=== PATIENT | male | born 1960 | race Caucasian/White ===

== ENCOUNTER 2016-05-19 17:29 | Inpatient (IN) | payer OTHER ==
[~2016-05-19] VITALS: Ht 165.1 cm; Wt 94.3 kg
[2016-05-19 18:17] VITALS: BP 124/75
--- NOTE | 2016-05-19 20:41 | NUR ---
TO ER BED 8
--- NOTE | 2016-05-19 20:43 | NUR ---
PT IS 55/M BIB FAMILY TO ED WITH C/O BRIGHT RED BLOOD FROM RECTUM X 1 WEEK WITH ABDMINAL CRAMPING TYPE PAIN. PT STATES MED HX OF HTN, CIRRHOSIS, BLOOD TRANSFUSION. DENIES N/V/D; SKIN IS PINK/WARM/DRY; AAOX4 WITH EVEN AND STEADY GAIT; LUNGS CLEAR BL; HR EVEN AND REGULAR; PT DENIES ANY FEVER, CP, SOB, OR COUGH AT THIS TIME; PATIENT STATES PAIN OF 6/10 AT THIS TIME; VSS; PATIENT POSITIONED FOR COMFORT; HOB ELEVATED; BEDRAILS UP X2; BED DOWN. ER MD MADE AWARE OF PT STATUS.
--- NOTE | 2016-05-19 21:20 | NUR ---
Patient being evaluated by at bedside.
[2016-05-19 21:55] LABS: ANION GAP 10.9 (8-16); CALCIUM 7.5 mg/dL (8.5-10.1); CREATININE 0.8 mg/dL (0.6-1.3); POTASSIUM 3.9 mmol/L (3.5-5.1)
[2016-05-19 22:03] LABS: ALBUMIN 3.1 g/dL (3.4-5.0); TOTAL BILIRUBIN 0.7 mg/dL (0.0-1.0); TOTAL PROTEIN, SERUM 6.5 g/dL (6.4-8.2)
[2016-05-19 22:04] LABS: BASOPHILS # (AUTO) 0.1 K/uL (0.00-0.22); BASOPHILS % (AUTO) 2.6 % (0.0-2.0); EOSINOPHILS % (AUTO) 1.1 % (0.0-4.0); HEMATOCRIT 37.6 % (36-52); HEMOGLOBIN 12.6 g/dL (12.0-18.0); LYMPHOCYTES # (AUTO) 0.5 K/uL (2.0-11.5); LYMPHOCYTES % (AUTO) 23.9 % (20.5-51.1); MEAN CORPUSCULAR HEMOGLOBIN 35 pg (27-31); MEAN CORPUSCULAR HGB CONC 34 g/dL (33-37); MEAN CORPUSCULAR VOLUME 105 fL (80-94); MONOCYTES # (AUTO) 0.3 K/uL (0.8-1.0); MONOCYTES % (AUTO) 13.6 % (1.7-9.3); NEUTROPHILS # (AUTO) 1.2 K/uL (1.8-7.7); NEUTROPHILS % (AUTO) 58.8 % (42.2-75.2); RED BLOOD CELL COUNT(AUTO) 3.59 MIL/uL (4.20-6.10); RED CELL DISTRIBUTION WIDTH 14.1 % (11.6-13.7); WHITE BLOOD COUNT (AUTO) 2.1 K/uL (4.8-10.8)
[2016-05-19 22:20] LABS: PLATELET COUNT (AUTO) 23 K/uL (140-450)
--- NOTE | 2016-05-19 22:22 | NUR ---
critical lab results given to Dr. Hernandez and RN. Read back to lab technician Aury at [phone]
[2016-05-19] MEDS ORDERED: NACL 0.9% 1,000 ML IV ONE (22:25)
[2016-05-19] MEDS ORDERED: PIPERACILLIN/TAZOBACTAM 3.375 GM in DEXTROSE 5% 50 ML IV ONE (22:25)
[2016-05-19 22:33] LABS: INR 1.4 (0.8-1.2); PROTHROMBIN TIME 13.5 secs (10.8-13.4)
[2016-05-19 22:59] LABS: APPEARANCE,URINE CLEAR (CLEAR); BILIRUBIN,URINE NEGATIVE (NEGATIVE); BLOOD, URINE NEGATIVE (NEGATIVE); COLOR,URINE YELLOW (YELLOW); LEUKOCYTE ESTERASE ,URINE NEGATIVE (NEGATIVE); NITRITE, URINE NEGATIVE (NEGATIVE); PROTEIN,URINE NEGATIVE (NEGATIVE); UGLUCOSE 2+ (NEGATIVE)
--- NOTE | 2016-05-19 23:05 | NUR ---
PT TAKEN OFF UNIT TO HAVE CT DONE VIA WHEELCHAIR
[2016-05-19 23:06] LABS: BACTERIA,URINE RARE /HPF (None Seen); MUCUS,URINE 3+ /LPF (None Seen); RBC,URINE 0-3 /HPF (0-5); SQUAMOUS EPITHELIAL CELL,UR None Seen /LPF (0-3 (FEW)); WBC,URINE 0-3 /HPF (0-5)
[2016-05-19] MEDS ORDERED: PIPERACILLIN/TAZOBACTAM 3.375 GM VIAL IV ONE (23:11)
--- NOTE | 2016-05-19 23:30 | NUR ---
PT BACK ON UNIT FROM HAVING CT DONE
[2016-05-20] MEDS ORDERED: NACL 0.9% 1,000 ML IV ONE (00:15)
[2016-05-20] MEDS ORDERED: ONDANSETRON 4 MG/2 ML VIAL IVP PRN (00:45)
[2016-05-20] MEDS ORDERED: MORPHINE SULFATE 2 MG/ML SYR IVP PRN (00:45)
[2016-05-20] MEDS ORDERED: LORazepam 2 MG/ML VIAL IVP PRN (00:45)
--- NOTE | 2016-05-20 01:12 | NUR ---
Patient will be admitted to care of DR ARNOLD. Admited to TELE. Will go to room 107A. Belongings list completed. Report to JUN ISAAC.
[2016-05-20 01:20] VITALS: BP 124/72
--- NOTE | 2016-05-20 01:20 | NUR ---
RECEIVED PT FROM ER VIA SHINE PT IS AAOX4 AMBULATORY ON CARDIAC MONNITOR SR HL ON LEFT AC PATENT, NOT ACTIVE RECTAL BLEEDING AT THIS TIME , SKIN IS INTACT, PT IS ORIENTED TO THE FLOOR CALL LIGHT WITHIN REACH, RELTIVE AT BED SIDE.
[2016-05-20] MEDS ORDERED: cefTRIAXone 1,000 MG VIAL ONE (01:38)
[2016-05-20 01:51] LABS: HEMATOCRIT 35.7 % (36-52)
[2016-05-20 02:08] LABS: CREATINE KINASE MB 0.8 ng/mL (0-3.6)
--- NOTE | 2016-05-20 03:00 | NUR ---
PT AMBULATE TO THE RESTROOM VOIDING WELL NOT RECTAL BLEEDING SEEN ON TELE SR
[2016-05-20 04:00] VITALS: BP 141/68
--- NOTE | 2016-05-20 04:54 | NUR ---
SPONGE BATH GIVEN LINEN CHANGED PT REMAIN STABLE NOT RECTAL BLEEDING SEEN, ON TELE SR
--- NOTE | 2016-05-20 06:20 | NUR ---
PT RESTING ON BED NOT ACTIVE BLEEDING , ON TELEMETRY SR ,NOT DISTRESS NOTED
--- NOTE | 2016-05-20 07:30 | NUR ---
RECEIVED PT FROM ASSOCIATE PROPERTY MANAGER JUN ISAAC. PT AWAKE,ALERT, AND ORIENTED. NO S/S OF RESPIRATORY DISTRESS NOTED. ABDOMEN SOFT, NONTENDER. SKIN INTACT. IV TO LEFT AC , SITE INTACT AND PATENT. PT CAN MOVE ALL HIS EXTREMITIES. NO ACTIVE RECTAL BLEEDING AT THIS TIME. VSS .CALL LIGHT IN REACH. POC DISCUSSED WITH PT, WILL CONTINUE TO MONITOR.
[2016-05-20 08:00] VITALS: BP 130/80
--- NOTE | 2016-05-20 08:00 | NUR ---
PATIENT HAS BEEN SCREENED AND CATEGORIZED HIGH NUTRITION RISK. PATIENT WILL BE SEEN WITHIN 1-2 DAYS OF ADMISSION. 05/20/16-05/21/[address]
[2016-05-20] MEDS ORDERED: DEXTROSE 50% 50 ML SYR IVP PRN (08:35)
[2016-05-20] MEDS ORDERED: PANTOPRAZOLE 40 MG INJ VIAL IVP ONE (09:00)
[2016-05-20] MEDS: PANTOPRAZOLE 40 MG INJ VIAL IVP SCH (09:19)
[2016-05-20 09:36] LABS: HEMATOCRIT 38.7 % (36-52); HEMOGLOBIN 13.3 g/dL (12.0-18.0); MEAN CORPUSCULAR HEMOGLOBIN 36 pg (27-31); MEAN CORPUSCULAR HGB CONC 34 g/dL (33-37); MEAN CORPUSCULAR VOLUME 105 fL (80-94); PLATELET COUNT (AUTO) 28 K/uL (140-450); WHITE BLOOD COUNT (AUTO) 2.1 K/uL (4.8-10.8)
[2016-05-20 10:02] LABS: BAND % (MANUAL) 2 % (0-8); BASOPHILS % (MANUAL) 1 % (0-2); EOSINOPHILS % (MANUAL) 4 % (0-4); LYMPHOCYTES % (MANUAL) 18 % (20-46); MONOCYTES % (MANUAL) 8 % (5-12); NEUTROPHILS % (MANUAL) 67 (43-65); PLATELET ESTIMATE DECREASED
[2016-05-20 10:07] LABS: HYPOCHROMASIA 1+
--- NOTE | 2016-05-20 10:30 | NUR ---
PT RESTING IN BED. NO PAIN OR DISCOMFORTED COMPLAINED AT THIS TIME.
[2016-05-20] MEDS: BLOOD GLUCOSE MONITORING 1 DEV DEV FS SCH ×3 (10:45→21:41)
--- NOTE | 2016-05-20 11:48 | NUR ---
CM NOTE INITIAL REVIEW SENT TO [facility] FAX# [phone] PH# ALBERTO [phone] JULY [phone] AND TO [facility] FAX# [phone] PH# [phone]
[2016-05-20 12:00] VITALS: BP 134/81
--- NOTE | 2016-05-20 13:22 | NUR ---
05/20/16 RD INITIAL ASSESSMENT COMPLETED PLEASE REFER TO NUTRITION ASSESSMENT UNDER CARE ACTIVITY FOR ESTIMATED NUTRITIONAL NEEDS. RD RECOMMENDATIONS: 1. CONTINUE ON CCHO 60 DIET TOLERATED. 2. INCREASE PROTEIN NEEDS D/T SEPSIS. 3. RD WILL F/U 3-5 DAYS; MODERATE RISK. ENRIQUE ARELLANO RD
--- NOTE | 2016-05-20 14:17 | NUR ---
PT HAD BLOODY STOOL, PAGED , WILL FOLLOW UP.
--- NOTE | 2016-05-20 14:22 | NUR ---
CALLED IN, UPDATED PT'S CONDITION. PER HE WILL COME IN TO SEE PT.
--- NOTE | 2016-05-20 15:54 | NUR ---
ENDORSED PT TO EDWARD BARAHONA AND ETHEL BARAHONA . PT VSS AT THIS TIME. NO S/S OF RESPIRATORY DISTRESS NOTED.
[2016-05-20 16:00] VITALS: BP 140/74
--- NOTE | 2016-05-20 16:00 | NUR ---
RECEIVED REPORT FROM BILL BARAHONA FOR CONTINUITY OF CARE. PT RESTING IN BED. VSS. CONDITION AND PLAN OF CARE DISCUSSED AND RECEIVED. PT SEEN BY DR MENDOZA, NEW ORDERS CARRIED OUT. INFORMED CONSENT OBTAINED FOR EGD/COLONOSCOPY. EDUCATION HAND OUT GIVEN.
[2016-05-20] MEDS: LACTULOSE 20 GM/30 ML UDC PO SCH ×2 (17:26→21:42)
[2016-05-20] MEDS: SENNA 8.6 MG TAB PO SCH (17:27)
[2016-05-20] MEDS: INSULIN LISPRO SLIDING SCALE 100 UNITS/ML VIAL SUBQ PRN (17:31)
--- NOTE | 2016-05-20 18:16 | NUR ---
ALL DUE MEDS GIVEN ORDERED WITH EDUCATION. PT TOLERATED WELL. CONDITION REMAINS STABLE.
[2016-05-20] MEDS ORDERED: MAGNESIUM CITRATE 300 ML BTL PO SCH (19:00)
--- NOTE | 2016-05-20 19:22 | NUR ---
ENDORSED PLAN OF CARE TO NIGHT NURSE. CONDITION STABLE.
--- NOTE | 2016-05-20 19:23 | NUR ---
RECEIVED PT FROM NOEMI RN PT ROMANSH SPEAKER AAOX4 AMBULATORY HL ON LEFT AC PATENT ON TELEMETRY SR RELATIVES AT BED SIDE INITIAL ASSESSMENT DONE
[2016-05-20 20:00] VITALS: BP 117/66
--- NOTE | 2016-05-20 21:00 | NUR ---
BLOOD SUGAR TEST 86 PT HAS A LIQUID STOOL REDDISH.
[2016-05-21] VITALS: BP 112/71
--- NOTE | 2016-05-21 | NUR ---
PT SLEEPING WELL NOT DISTRESS NOTED STILL LIQUID STOOL REDDISH, , PT IS NPO FOR EGD AND COLONOSCOPY IN AM
[2016-05-21 00:40] LABS: HEMATOCRIT 37.7 % (36-52); HEMOGLOBIN 12.4 g/dL (12.0-18.0)
[2016-05-21 01:54] LABS: CREATINE KINASE MB 0.6 ng/mL (0-3.6)
[2016-05-21 04:00] VITALS: BP 105/65
--- NOTE | 2016-05-21 04:46 | NUR ---
SPONGE BATH GIVEN , LINEN CHANGED NOT DISTRESS NOTES PT STILL LIQUID STOOL REDDISH COLOR
[2016-05-21] MEDS: BLOOD GLUCOSE MONITORING 1 DEV DEV FS SCH ×4 (05:59→20:34)
[2016-05-21 06:00] LABS: HEMATOCRIT 37.7 % (36-52); HEMOGLOBIN 12.9 g/dL (12.0-18.0); MEAN CORPUSCULAR HEMOGLOBIN 36 pg (27-31); MEAN CORPUSCULAR HGB CONC 34 g/dL (33-37); MEAN CORPUSCULAR VOLUME 105 fL (80-94); PLATELET COUNT (AUTO) 33 K/uL (140-450); RED CELL DISTRIBUTION WIDTH 13.7 % (11.6-13.7); WHITE BLOOD COUNT (AUTO) 2.3 K/uL (4.8-10.8)
--- NOTE | 2016-05-21 06:03 | NUR ---
BLOOD SUGAR TEST 102, PT STILL LIQUID STOOL REDDISH COLOR DENIES ANY PAIN , CONSENT ,SURGICAL CHECK LIST AND TICKET TO RIDE READY FOR EGD AND COLONOSCOPY
[2016-05-21 06:33] LABS: ALBUMIN 3.2 g/dL (3.4-5.0); ANION GAP 7.5 (8-16); CALCIUM 7.7 mg/dL (8.5-10.1); CARBON DIOXIDE 29.1 mmol/L (21-32); CREATININE 0.6 mg/dL (0.6-1.3); MAGNESIUM 1.8 mg/dL (1.8-2.4); POTASSIUM 3.6 mmol/L (3.5-5.1); TOTAL BILIRUBIN 1.5 mg/dL (0.0-1.0); TOTAL PROTEIN, SERUM 6.6 g/dL (6.4-8.2)
--- NOTE | 2016-05-21 07:00 | NUR ---
PT ALERT AND ORIENTED X4, PASHTO SPEAKING. NO SIGNS OF ACUTE DISTRESS. SKIN IS WARM AND DRY. NO EPISODES OF ANY NAUSEA OR VOMITING. NO DISCOMFORT NOTED. DENIES OF ANY PAIN OR DISCOMFORT. ALL NEEDS ATTENDED, SAFETY PRECAUTIONS MAINTAINED. CALL LIGHT WITHIN REACH.
[2016-05-21 07:05] LABS: BAND % (MANUAL) 1 % (0-8); BASOPHILS % (MANUAL) 0 % (0-2); EOSINOPHILS % (MANUAL) 3 % (0-4); LYMPHOCYTES % (MANUAL) 21 % (20-46); MONOCYTES % (MANUAL) 6 % (5-12); NEUTROPHILS % (MANUAL) 69 (43-65); PLATELET ESTIMATE DECREASED
[2016-05-21 08:00] VITALS: BP 117/73
--- NOTE | 2016-05-21 08:13 | NUR ---
PT WENT OFF UNIT TO OR FOR EGD AND COLONOSCOPY, AWAKE ALERT AND RESPONSIVE NO SIGNS OF ACUTE DISTRESS. PRE OP CHECKLIST DONE PER PERMACULTURE CONTRACTOR NURSE. VERIFIED AND CONTINUE TO MONITOR.
[2016-05-21] MEDS: fentaNYL 0.05 MG/ML VIAL ONE ×2 (08:17→10:47)
[2016-05-21] MEDS: MIDAZOLAM 2 MG/2 ML VIAL ONE ×2 (08:17→10:47)
[2016-05-21] MEDS: LACTULOSE 20 GM/30 ML UDC PO SCH (09:00)
[2016-05-21] MEDS: PANTOPRAZOLE 40 MG INJ VIAL IVP SCH (09:00)
[2016-05-21] MEDS ORDERED: LACTULOSE 20 GM/30 ML UDC PO SCH (09:00)
[2016-05-21] MEDS: SENNA 8.6 MG TAB PO SCH (09:00)
[2016-05-21] MEDS: NADOLOL 20 MG TAB PO SCH (09:00)
[2016-05-21 09:07] LABS: INR 1.4 (0.8-1.2); PROTHROMBIN TIME 13.3 secs (10.8-13.4)
[2016-05-21 11:00] VITALS: BP 106/60
--- NOTE | 2016-05-21 11:00 | NUR ---
PT CAME BACK FROM OR. RECEIVED REPORT FROM OR NURSE MCCONNELL. S/P EGD WITH COLONOSCOPY. POST OP DX ESOPHAGEAL VARICES, DIVERTICULOSIS AND HEMORRHOIDS WITH 7 BANDS TOTAL. PT IS ASLEEP, AND RESPONSIVE. NO SIGNS OF ACUTE DISTRESS. NO C/O PAIN AT THIS TIME. NO EPISODES OF ANY NAUSEA OR VOMITING AT THIS TIME. CONTINUE TO MONITOR.
[2016-05-21] MEDS ORDERED: FUROSEMIDE 20 MG/2 ML VIAL IVP SCH (11:15)
--- NOTE | 2016-05-21 11:17 | NUR ---
NEW ORDERS RECEIVED FROM Rand GALLARDO NOTED AND CARRIED OUT.
[2016-05-21 16:00] VITALS: BP 129/71
[2016-05-21] MEDS: INSULIN LISPRO SLIDING SCALE 100 UNITS/ML VIAL SUBQ PRN ×2 (16:04→20:39)
--- NOTE | 2016-05-21 19:21 | NUR ---
PT ALERT AND RESPONSIVE, NO SIGNS OF ACUTE DISTRESS. ENDORSED TO ONCOMING ANIMAL NUTRITION CONSULTANT NURSE FOR CONTINUITY OF CARE.
--- NOTE | 2016-05-21 19:30 | NUR ---
RECEIVED REPORT FROM JUN SKINNER, AT BEDSIDE. INITIAL ASSESSMENT AND BODY CHECK DONE. PATIENT AAO X 4, ABLE TO FOLLOW COMMAND AND MAKE NEEDS KNOWN AND AMBULATORY BY SELF WITH STEADY GAIT. PATIENT CURRENTLY SITTING UP ON THE BED AND TALKING TO HIS . NO S/S OF DISTRESS OR SOB NOTED. DENIED OF PAIN/DISCOMFORT AT THIS TIME. SKIN WARM/DRY TO TOUCH WITH NORMAL COLOR AND INTACT. NO ACTIVE RECTAL BLEEDING NOTED. DISCUSSED PLAN OF CARE, PAIN MANAGEMENT AND MEDICATION REGIMEN WITH PATIENT AND PATIENT VERBALIZED UNDERSTANDING. PLACED PATIENT ON SAFETY PRECAUTIONS AND WILL CONTINUE TO MONITOR. CALL LIGHT LEFT WITHIN REACH.
[2016-05-21] MEDS: POTASSIUM CHLORIDE 20% 40 MEQ/15 ML UDC PO SCH (20:35)
--- NOTE | 2016-05-21 22:05 | NUR ---
ADMINISTERED DUE MEDICATION MD'S ORDERED WITH EDUCATION GIVEN. PATIENT COMPLYING WITH MEDICATION AND TOLERATED WELL. RESTED COMFORTABLE IN BED WITH ALL NEEDS ATTENDED. WILL CONTINUE TO MONITOR.
[2016-05-22] VITALS: BP 122/64
--- NOTE | 2016-05-22 00:36 | NUR ---
PATIENT ASLEEP COMFORTABLY IN BED, EASILY AROUSED AND REMAINED IN STABLE CONDITION. NO ANY COMPLAINT MADE. WILL CONTINUE TO MONITOR.
--- NOTE | 2016-05-22 03:40 | NUR ---
PATIENT IS CLINICALLY STABLE WITHOUT APPARENT DISTRESS NOTED. WILL CONTINUE TO MONITOR.
[2016-05-22] MEDS: BLOOD GLUCOSE MONITORING 1 DEV DEV FS SCH ×2 (05:30→11:18)
[2016-05-22 06:03] LABS: BASOPHILS # (AUTO) 0.1 K/uL (0.00-0.22); BASOPHILS % (AUTO) 2.4 % (0.0-2.0); EOSINOPHILS % (AUTO) 1.8 % (0.0-4.0); HEMATOCRIT 35.3 % (36-52); HEMOGLOBIN 11.8 g/dL (12.0-18.0); LYMPHOCYTES # (AUTO) 0.4 K/uL (2.0-11.5); LYMPHOCYTES % (AUTO) 15.5 % (20.5-51.1); MEAN CORPUSCULAR HEMOGLOBIN 35 pg (27-31); MEAN CORPUSCULAR HGB CONC 33 g/dL (33-37); MEAN CORPUSCULAR VOLUME 106 fL (80-94); MONOCYTES # (AUTO) 0.2 K/uL (0.8-1.0); NEUTROPHILS # (AUTO) 1.8 K/uL (1.8-7.7); NEUTROPHILS % (AUTO) 70.3 % (42.2-75.2); PLATELET COUNT (AUTO) 20 K/uL (140-450); RED BLOOD CELL COUNT(AUTO) 3.33 MIL/uL (4.20-6.10); RED CELL DISTRIBUTION WIDTH 13.6 % (11.6-13.7); WHITE BLOOD COUNT (AUTO) 2.5 K/uL (4.8-10.8)
[2016-05-22 06:12] LABS: ANION GAP 7.9 (8-16); CALCIUM 7.4 mg/dL (8.5-10.1); CARBON DIOXIDE 27.6 mmol/L (21-32); CREATININE 0.6 mg/dL (0.6-1.3); POTASSIUM 3.5 mmol/L (3.5-5.1)
--- NOTE | 2016-05-22 07:20 | NUR ---
ENDORSED PLAN OF CARE TO JUN SKINNER, AT BEDSIDE. PATIENT RESTED WELL THROUGHOUT THE SHIFT AND REMAINED IN STABLE CONDITION WITHOUT S/S OF DISTRESS NOTED.
--- NOTE | 2016-05-22 07:21 | NUR ---
PT ALERT AND ORIENTED X4, SYRIAC SPEAKING. NO SIGNS OF ACUTE DISTRESS. SKIN IS WARM AND DRY. NO C/O ANY BOWEL OR BLADDER DISCOMFORT. DENIES OF ANY PAIN OR DISCOMFORT. ALL NEEDS ATTENDED, SAFETY PRECAUTIONS MAINTAINED. CALL LIGHT WITHIN REACH.
[2016-05-22 08:00] VITALS: BP 112/67
[2016-05-22] MEDS: NADOLOL 20 MG TAB PO SCH (08:14)
[2016-05-22] MEDS: POTASSIUM CHLORIDE 20% 40 MEQ/15 ML UDC PO SCH (08:15)
[2016-05-22] MEDS ORDERED: PANTOPRAZOLE 40 MG TABEC PO SCH (09:00)
[2016-05-22] MEDS ORDERED: MINERAL OIL 30 ML UDC PO ONE (09:00)
[2016-05-22] MEDS ORDERED: LACTULOSE 20 GM/30 ML UDC PO SCH (09:00)
--- NOTE | 2016-05-22 10:53 | NUR ---
PT REPORTED AND ALSO NOTED A 2 SMALL RUBBER BANDS AFTER HAVING A BM, CALLED Rand FARFAN AND LEFT A MESSAGE. AWAITING FOR RESPONSE.
[2016-05-22] MEDS: INSULIN LISPRO SLIDING SCALE 100 UNITS/ML VIAL SUBQ PRN (11:18)
[2016-05-22] MEDS ORDERED: PANT40EC PO (11:30)
--- NOTE | 2016-05-22 11:42 | NUR ---
RECEIVED NEW ORDER FROM DR. ARNOLD. JUNE D/C PT. TODAY. MADE AWARE OF NOTED RUBBER BANDS FROM BM. VERBALIZED IT'S OK. PT AND FAMILY MADE AWARE.
--- NOTE | 2016-05-22 13:00 | NUR ---
PT ALERT AND ORIENTED, NO SIGNS OF ACUTE DISTRESS. MAY D/C HOME ORDERED BY DR. ARNOLD. EDUCATED TO FOLLOW UP WITH PCP IN 1 WEEK. PT AND FAMILY VERBALIZED UNDERSTANDING. REVIEWED DISCHARGE PRESCRIPTIONS INDICATIONS AND SIDE EFFECTS. VERBALIZED UNDERSTANDING. IV LINE AND WRIST BANDS REMOVED. PERSONAL BELONGINGS WITH PT UPON D/C. PICKED UP BY FAMILY AND WHEELED OUT TO FRONT LOBBY. WILL GO HOME WITH PRIVATE AUTO.
== END 2016-05-22 13:00 | disposition home or self-care (01) | DRG 710 ==
LOC: MED 17:29 → MTU 05-20 00:38 → OBSVTOIN 05-20 08:23
PROVIDERS: ADMIT Hospitalist; ATTEND Hospitalist
PROC: 06LY4CC Occlusion of Hemorrhoidal Plexus with Extraluminal Device, Percutaneous Endoscopic Approach (ICD-10-PCS; principal; 2016-05-21 09:00)
PROC: 06L34CZ Occlusion of Esophageal Vein with Extraluminal Device, Percutaneous Endoscopic Approach (ICD-10-PCS; 2016-05-21 09:00)
DX: A41.9 Sepsis, unspecified organism (principal); D61.818 Other pancytopenia; I85.00 Esophageal varices without bleeding; K70.30 Alcoholic cirrhosis of liver without ascites; K76.6 Portal hypertension; E11.9 Type 2 diabetes mellitus without complications; I10 Essential (primary) hypertension; D50.0 Iron deficiency anemia secondary to blood loss (chronic); K64.8 Other hemorrhoids; D73.1 Hypersplenism; E66.9 Obesity, unspecified; K57.30 Diverticulosis of large intestine without perforation or abscess without bleeding; Z98.890 Other specified postprocedural states; Z68.34 Body mass index [BMI] 34.0-34.9, adult
CPT/HCPCS: 96365; 99285; G0378; 36415; 80048; 80053; 81001; 82550; 82553; 82948; 83540; 83605; 83690; 83735; 84484; 85018; 85025; 85610; 87040; 87081; 93005; C9113; J0696; J1815; J2250; J2543; J3010; J7030; J7060; Q9967

== ENCOUNTER 2018-10-10 15:16 | Inpatient (IN) | payer OTHER ==
[~2018-10-10] VITALS: Ht 167.6 cm; Wt 93.0 kg
[2018-10-10 15:16] VITALS: BP 90/48
[~2018-10-10 15:16] MED LIST: PANT40EC PO
--- NOTE | 2018-10-10 15:16 | NUR ---
PATIENT WAS BIB AMBULANCE
--- NOTE | 2018-10-10 15:16 | NUR ---
PATIENT WAS TRANSFERED TO BED 10
[2018-10-10] MEDS ORDERED: NACL 0.9% 1,000 ML IV SCH (15:26)
[2018-10-10] MEDS ORDERED: OCTREOTIDE ACETATE 1.25 MG in NACL 0.9% 250 ML IV SCH (15:30)
[2018-10-10] MEDS ORDERED: cefTRIAXone 1,000 MG VIAL ONE (15:45)
--- NOTE | 2018-10-10 15:45 | NUR ---
PT WAS BIBA FROM [facility]; PT WAS HAVING ESOPHAGEAL BANDS PLACED AND PATIENT HAD 5 PLACED, AND PT BEGAN BLEEDING DURING PROCEDURE. ESTIMATED BLOOD LOSS 500 CC PER EMS. PT IS AAOX4, DENIES ANY PAIN AT THIS TIME. IVF INFUSING WELL. PT ABLE TO TALK, MAKE HIS NEEDS KNOWN. PUPILS REACTIVE TO LIGHT BOTH 3 MM. CLEAR SPEECH. BREATHING EVEN AND NON-LABORED. CONNECTED TO MONITOR AT THIS TIME. LABS DRAWN. ER MD AT THE BEDSIDE. WILL CONTINUE TO MONTIOR PT. HX LIVER CIRRHOSIS, ETOH ABUSE, ESOPHAGEAL VARACIES
[2018-10-10 15:53] LABS: BASOPHILS % (AUTO) 0.4 % (0.0-2.0); EOSINOPHILS # (AUTO) 0.1 K/uL (0-0.4); EOSINOPHILS % (AUTO) 1.4 % (0.0-4.0); HEMOGLOBIN 9.2 g/dL (12.0-18.0); LYMPHOCYTES # (AUTO) 0.6 K/uL (2.0-11.5); LYMPHOCYTES % (AUTO) 9.2 % (20.5-51.1); MEAN CORPUSCULAR HEMOGLOBIN 35 pg (27-31); MEAN CORPUSCULAR HGB CONC 34 g/dL (33-37); MEAN CORPUSCULAR VOLUME 103.6 fL (80-94); MONOCYTES # (AUTO) 0.4 K/uL (0.8-1.0); NEUTROPHILS # (AUTO) 5.1 K/uL (1.8-7.7); PLATELET COUNT (AUTO) 51 K/uL (140-450); RED BLOOD CELL COUNT(AUTO) 2.61 MIL/uL (4.20-6.10); RED CELL DISTRIBUTION WIDTH 14.1 % (11.6-13.7); WHITE BLOOD COUNT (AUTO) 6.2 K/uL (4.8-10.8)
[2018-10-10 16:11] LABS: ANION GAP 9.5 (8-16); CARBON DIOXIDE 26.1 mmol/L (21-32); POTASSIUM 3.6 mmol/L (3.5-5.1)
[2018-10-10 16:12] LABS: CREATININE 0.7 mg/dL (0.7-1.3); PROTHROMBIN TIME 16.8 secs (10.8-13.4)
[2018-10-10 16:13] LABS: ALBUMIN 1.9 g/dL (3.4-5.0); TOTAL BILIRUBIN 1.4 mg/dL (0.0-1.0)
--- NOTE | 2018-10-10 16:22 | NUR ---
FAMILY AT THE BEDSIDE. PT RESTING COMFORTABLY AT THE BEDSIDE. VS STABVLE. BP 96/56. PT STATES HAVING PAIN AT THROAT AND STOMACH /10. MORE AWAKE AND TALKING TO PT. O2 SAT 96% ON VIA NC 2L. WILL CONTINUE TO MONITOR PT.
--- NOTE | 2018-10-10 16:25 | NUR ---
CONFIRMED INSURANCE WITH ER ADMITTING AND [facility]ED [facility]
[2018-10-10] MEDS ORDERED: ONDANSETRON 4 MG/2 ML VIAL IVP ONE (16:40)
[2018-10-10] MEDS ORDERED: MORPHINE SULFATE 2 MG/ML SYR IVP ONE (16:40)
[2018-10-10] MEDS ORDERED: PANTOPRAZOLE 40 MG INJ VIAL IVP ONE (16:40)
--- NOTE | 2018-10-10 16:41 | NUR ---
UNABLE TO OBTAIN MEDICATION RECONCILIATION AT THIS TIME. AND FAMILY AT BEDSIDE WILL BRING MEDICATIONS FROM HOME.
--- NOTE | 2018-10-10 16:52 | NUR ---
CHECKED ON PT. MEDICATED WITH PAIN MED. LYING COMFORTABLTY IN HIS BED. BP 98/60 AT THIS TIME. PT TO BE ADMITTED TO ICU. WAITING FOR THE BED.
--- NOTE | 2018-10-10 17:06 | NUR ---
ADMITITNG DR. GIFFORD TALKING TO FAMILY MEMBER AND PT AT THE BEDSIDE.
[2018-10-10] MEDS ORDERED: POTASSIUM CHLORIDE 40 MEQ, LIDOCAINE 1% 25 MG in NACL 0.9% 250 ML IV PRN (17:15)
[2018-10-10] MEDS ORDERED: MAGNESIUM OXIDE 400 MG TAB PO PRN (17:15)
[2018-10-10] MEDS ORDERED: diphenhydrAMINE 50 MG/ML VIAL IVP PRN (17:15)
[2018-10-10] MEDS ORDERED: ALBUTEROL 0.083% 2.5 MG/3 ML NEBU INH PRN (17:15)
[2018-10-10] MEDS ORDERED: ALUMINUM HYD/MAG/SIMETHICONE 30 ML UDC PO PRN (17:15)
[2018-10-10] MEDS ORDERED: HYDROcodone/APAP 5/325 MG 1 TAB TAB PO PRN ×2 (17:15)
[2018-10-10] MEDS ORDERED: IPRATROPIUM 0.02% 0.5 MG/2.5 ML NEBU INH PRN (17:15)
[2018-10-10] MEDS ORDERED: ZOLPIDEM 5 MG TAB PO PRN (17:15)
[2018-10-10] MEDS ORDERED: LORazepam 2 MG/ML VIAL IVP PRN (17:15)
[2018-10-10] MEDS ORDERED: POTASSIUM CHLORIDE 10 MEQ TABER PO PRN (17:15)
[2018-10-10] MEDS ORDERED: ACETAMINOPHEN 325 MG TAB PO PRN (17:15)
[2018-10-10] MEDS ORDERED: MORPHINE SULFATE 2 MG/ML SYR IVP PRN (17:15)
[2018-10-10] MEDS ORDERED: ONDANSETRON 4 MG/2 ML VIAL IVP PRN (17:15)
[2018-10-10] MEDS ORDERED: BISACODYL 10 MG SUPP RC PRN (17:15)
[2018-10-10] MEDS ORDERED: MAG SULF 2000 MG/WATER PREMIX 50 ML IV PRN (17:15)
[2018-10-10] MEDS ORDERED: ACETAMINOPHEN 650 MG SUPP RC PRN (17:15)
[2018-10-10] MEDS ORDERED: SODIUM PHOSPHATE 118 ML ENEM RC PRN (17:15)
[2018-10-10] MEDS ORDERED: DEXTROSE 50% 50 ML SYR IVP PRN (17:15)
[2018-10-10] MEDS ORDERED: DOCUSATE SODIUM 250 MG GELCAP PO PRN (17:15)
[2018-10-10] MEDS ORDERED: guaiFENesin DM 200/20 MG-10 ML 10 ML UDC PO PRN (17:15)
[2018-10-10] MEDS ORDERED: ALBUMIN HUMAN 25% 100 ML IV ONE (17:45)
[2018-10-10] MEDS: NACL 0.9% 1,000 ML IV SCH (17:45)
--- NOTE | 2018-10-10 17:45 | NUR ---
ADMINISTERED ALBUMIN ADN 0.9 NS IVF ORDERED FOR PT HAVING LOW BLOOD PRESSURE. RECHECKED BP 95/49 AT THIS TIME. WILL CONTINUE TO MONITOR PT.
[2018-10-10] MEDS ORDERED: ALBUMIN HUMAN 25% 100 ML IV SCH (18:00)
--- NOTE | 2018-10-10 18:09 | NUR ---
CHECKED ON PT, VSS STABLE. PT DENIES ANY PAIN AT THIS TIME. BP 92/49. FAMILY AT THE BEDSIDE. WAITING FOR THE BED IN ICU, WILL CONTINUE TO MONITOR PT.
[2018-10-10] MEDS ORDERED: PROP20TA28 PO (18:30)
[2018-10-10] MEDS ORDERED: FERR-18 PO (18:30)
--- NOTE | 2018-10-10 18:38 | NUR ---
PATIENT IS TRANSFERED TO ICU BY NURSE AND EMT
--- NOTE | 2018-10-10 18:50 | NUR ---
Patient will be admitted to care of DR. GIFFORD. Admited to ICU. Will go to BED 3. Belongings list completed. Report to JUN MOON.
--- NOTE | 2018-10-10 18:50 | NUR ---
PT STABLE AT THE TIME OF DISCHARGE. PT MOVED SELF TO BED BY SLIDING . PT AAOX4. REPORT GIVEN TO JUN MOON. PT ALIZE.
--- NOTE | 2018-10-10 19:05 | NUR ---
REPORT GIVEN AT BEDSIDE BY DAY NURSE. PT AAOX4. ABLE TO SPEAK AND UNDERSTAND LITHUANIAN. ABLE TO MAKE NEEDS KNOWN. PERRLA BILATERALLY. AFEBRILE 97.6. DENIES PAIN AT THIS TIME. ON ROOM AIR WITH SAT AT 99%. LUNG SOUNDS CLEAR BILATERALLY. RESPIRATIONS EVEN AND UNLABORED. CHEST RISE SYMMETRICAL. SR ON MONITOR. PULSES PALPABLE. BP SLIGHTLY LOW AT THIS TIME. SBP AROUND 90S AT THIS TIME. BOWEL SOUNDS PRESENT IN ALL 4 QUADS. STATES LAST BM YESTERDAY. DENIES NAUSEA AND VOMITING AT THIS TIME. PT HAS RIGHT HAND 22 GAUGE, LEFT AC 18 GAUGE, AND RIGHT AC 20 GAUGE THAT ARE INTACT, PATENT, AND RUNNING NS 70ML/HR. OCREOTIDE @ 10ML/HR. PT NPO EXCEPT MEDS. SKIN INTACT. NON SKID SOCKS ON. MRSA SWAB DONE. BED IN LOWEST POSITION. SIDE RAILS UP. CALL LIGHT WITHIN REACH. WILL CONTINUE TO MONITOR.
[2018-10-10 19:16] LABS: APPEARANCE,URINE CLOUDY (CLEAR); BILIRUBIN,URINE 1+ (NEGATIVE); BLOOD, URINE NEGATIVE (NEGATIVE); COLOR,URINE ORANGE (YELLOW); LEUKOCYTE ESTERASE ,URINE NEGATIVE (NEGATIVE); NITRITE, URINE POSITIVE (NEGATIVE); UGLUCOSE TRACE (NEGATIVE)
[2018-10-10 19:29] LABS: RBC,URINE 0-5 /HPF (0-5); WBC,URINE 0-5 /HPF (0-5)
--- NOTE | 2018-10-10 19:47 | NUR ---
RECEIVED A CALL FROM DR. RITCHIE WANTING TO SEE IF THERE IS A GI CONSULT FOR THE PT. DR. RITCHIE WANTS TO BE THE CONSULT. WILL CALL DR. WEBB AND WILL NOTIFY DR. RITCHIE .
[2018-10-10 19:57] LABS: BASOPHILS % (AUTO) 0.2 % (0.0-2.0); EOSINOPHILS % (AUTO) 0.2 % (0.0-4.0); HEMATOCRIT 24.2 % (36-52); HEMOGLOBIN 8.2 g/dL (12.0-18.0); LYMPHOCYTES # (AUTO) 0.4 K/uL (2.0-11.5); MEAN CORPUSCULAR HEMOGLOBIN 35 pg (27-31); MEAN CORPUSCULAR HGB CONC 34 g/dL (33-37); MEAN CORPUSCULAR VOLUME 104.2 fL (80-94); MONOCYTES # (AUTO) 0.2 K/uL (0.8-1.0); MONOCYTES % (AUTO) 3.4 % (1.7-9.3); NEUTROPHILS % (AUTO) 89.2 % (42.2-75.2); PLATELET COUNT (AUTO) 38 K/uL (140-450); RED BLOOD CELL COUNT(AUTO) 2.32 MIL/uL (4.20-6.10); RED CELL DISTRIBUTION WIDTH 14.2 % (11.6-13.7); WHITE BLOOD COUNT (AUTO) 5.6 K/uL (4.8-10.8)
[2018-10-10 20:00] VITALS: BP 107/64
[2018-10-10] MEDS: OCTREOTIDE ACETATE 1.25 MG in NACL 0.9% 250 ML IV SCH (20:00)
--- NOTE | 2018-10-10 20:00 | NUR ---
HELD 2 UNITS HUMALOG FOR BG 160 SINCE PATIENT IS NPO AND ONLY ON NS.
--- NOTE | 2018-10-10 20:00 | NUR ---
PT HAD VISITORS IN ROOM. VSS. PT CALM. NO S/S OF DISTRESS. WILL CONTINUE TO MONITOR.
[2018-10-10] MEDS: LACTULOSE 20 GM/30 ML UDC PO SCH (20:01)
[2018-10-10] MEDS: MIDODRINE 5 MG TAB PO SCH (20:01)
[2018-10-10] MEDS: BLOOD GLUCOSE MONITORING 1 DEV DEV FS SCH (20:02)
--- NOTE | 2018-10-10 20:10 | NUR ---
VISITOR DROPPED OFF PT PHONE. PT STATES WANTS IT AT BEDSIDE.
--- NOTE | 2018-10-10 20:44 | NUR ---
CALLED DR LOONEY CALL BACK FROM DR PELAEZ. DR PELAEZ STATED DR LOONEY HAS TO DECIDE IF DR RITCHIE CAN BE PATIENTS GI CONSULT. DR PELAEZ STATED OKAY FOR PATIENT TO CONTINUE FULL CODE STATUS. DR PELAEZ STATED HE DID NOT WANT TO CONTINUE HOME MEDS FERROUS SULFATE 325 MG PO TID AND PROPRANOLOL [address]. [address] PELAEZ HEMOGLOBIN WENT DOWN 9.2 TO 8.2 AND HE STATED OKAY FOR NEXT BLOOD DRAW TO BE AT 0600 10/11/18. DR PELAEZ STATED OKAY FOR MRSA SCREEN ORDER.
--- NOTE | 2018-10-10 20:50 | NUR ---
RECEIVED PATIENT ON ROOM AIR, PULSE OX SAT 100%. EXPIRATORY WHEEZE NOTED. PRN BREATHING TREATMENT ADMINISTERED. TOLERATED TX WELL WITHOUT ADVERSE SIDE EFFECTS. PATIENT STATES TO BE "FEELING BETTER" POST TX. NO ACUTE RESPIRATORY DISTRESS NOTED AT THIS TIME. WILL CONTINUE TO MONITOR.
--- NOTE | 2018-10-10 21:10 | NUR ---
PATIENT VOMITED 200 ML BLOODY VOMITUS GAVE PRN ZOFRAN
--- NOTE | 2018-10-10 21:48 | NUR ---
CALLED [facility] TO SEE IF THERE IS A WAY TO BE TRANSFERRED TO DR LOONEY REGARDING PATIENTS GI CONSULT WITH DR RITCHIE. ENVIRONMENTAL ADVISER STATED THERE IS NO WAY TO CONTACT DR LOONEY AT THIS TIME THERE IS ONLY THE TAX COLLECTOR DR WHICH IS DR PELAEZ.
--- NOTE | 2018-10-10 21:53 | NUR ---
CALLED DR RITCHIE LEFT MESSAGE TO CALL BACK REGARDING PATIENTS GI CONSULT
[2018-10-10 22:00] VITALS: BP 91/44
--- NOTE | 2018-10-10 22:03 | NUR ---
RT AT PT BEDSIDE. GIVING BREATHING TX. VSS. WILL CONTINUE TO MONITOR
--- NOTE | 2018-10-10 22:30 | NUR ---
EMPTIED 100 ML URINE, DARK JAIME IN COLOR
--- NOTE | 2018-10-10 23:17 | NUR ---
CALLED DR RITCHIE AND NOTIFIED THAT DR LOONEY WAS NOT ABLE TO BE REACHED AND THE PIECER UP DR IS DR PELAEZ AND DID NOT ALLOW FOR AN ORDER FOR DR RITCHIE TO CONSULT THIS PATIENT DR PELAEZ STATED DR LOONEY NEEDS TO GIVE ORDER FOR CONSULT. DR RITCHIE STATED HE WILL NOT BE AVAILABLE TOMORROW BUT WHATEVER NEEDS TO BE DONE FOR THE PATIENT TO GO AHEAD AND DO IT. HE ALSO STATED PATIENT NEEDS TO HAVE BM.
[2018-10-11] VITALS (12 sets, daily range): BP systolic 92–147; BP diastolic 50–75
--- NOTE | 2018-10-11 02:21 | NUR ---
CALLED DR PELAEZ TO NOTIFY 600 ML BLACK TARRY STOOL AND 200 ML BLOODY EMESIS. NO NEW ORDERS AT THIS TIME. WILL CONTINUE TO MONITOR.
--- NOTE | 2018-10-11 03:50 | NUR ---
REPOSITIONED BP CUFF FOR ACCURATE READING. VS SHOW SR ON MONITOR. RR EVEN AND UNLABORED. WNL. DENIES PAIN. AFEBRILE. NURSE ASKED IF PT NEEDS ANYTHING AT THIS TIME. "IM OK RIGHT NOW." PER PT.
--- NOTE | 2018-10-11 04:45 | NUR ---
EMPTIED 300 ML BLACK TARRY STOOL, HERMINIA CARE PROVIDED, REPOSITIONED FOR COMFORT BP 102/60 MAP 76 HR 81
[2018-10-11] MEDS: MIDODRINE 5 MG TAB PO SCH ×3 (06:46→19:00)
[2018-10-11] MEDS: NACL 0.9% 1,000 ML IV SCH ×2 (06:47→20:51)
[2018-10-11] MEDS: BLOOD GLUCOSE MONITORING 1 DEV DEV FS SCH ×4 (06:49→20:49)
[2018-10-11] MEDS: INSULIN LISPRO SLIDING SCALE 100 UNITS/ML VIAL SUBQ PRN ×4 (06:58→20:52)
[2018-10-11 07:17] LABS: ALBUMIN 2.2 g/dL (3.4-5.0); ANION GAP 12.9 (8-16); CARBON DIOXIDE 24.8 mmol/L (21-32); CREATININE 0.8 mg/dL (0.7-1.3); POTASSIUM 4.7 mmol/L (3.5-5.1); TOTAL BILIRUBIN 1.7 mg/dL (0.0-1.0)
--- NOTE | 2018-10-11 07:30 | NUR ---
RECEIVED PT FROM PM NURSE, PT AWAKE, ALERT. ON O 2 NC 2L/MIN, O2 SATS 95%. NO S/S OF RESPIRATORY DISTRESS NOTED AT THIS MOMENT. PER PM NURSE, PT HAD DESATING THIS MORNING 02 SATS 86S% . BEDSIDE MONITOR SHOWS SR 90S. PT HAS IV TO LEFT AC # 18, RIGHT AC # 20 AND RIGHT HAND # 22 RUNNING NS AT 70 CC/HR AND SANDOSTATIN AT 10 CC/HR. SITE INTACT AND PATENT. PT ABLE TO MOVE HER EXTREMITIES . PT IS ON THE PHONE NOW. PER PM NURSE, PT HAD FRESH BLOOD EMESIS 200 CC AND URINE OUT PUT DARK JAIME 100 CC, PT ALSO HAD BLACK BM DURING PM SHIFT. LAB IS PENDING, WILL CALL DR. WEBB ONCE WE HAVE LAB REPORT. PT BP 108/68, HR 91 AT THIS TIME. INTRODUCED MYSELF, POC EXPLAINED. PT VERBALIZED UNDERSTANDING, WILL CONTINUE TO MONITOR.
[2018-10-11 07:32] LABS: HEMATOCRIT 21.7 % (36-52); HEMOGLOBIN 7.4 g/dL (12.0-18.0); MEAN CORPUSCULAR HEMOGLOBIN 36 pg (27-31); MEAN CORPUSCULAR HGB CONC 34 g/dL (33-37); MEAN CORPUSCULAR VOLUME 104.6 fL (80-94); PLATELET COUNT (AUTO) 38 K/uL (140-450); RED BLOOD CELL COUNT(AUTO) 2.07 MIL/uL (4.20-6.10); RED CELL DISTRIBUTION WIDTH 14.4 % (11.6-13.7); WHITE BLOOD COUNT (AUTO) 4.4 K/uL (4.8-10.8)
--- NOTE | 2018-10-11 08:07 | NUR ---
PT SLEEPING AT THIS TIME, LAB STILL PENDING.
--- NOTE | 2018-10-11 08:13 | NUR ---
PATIENT HAS BEEN SCREENED AND CATEGORIZED MODERATE NUTRITION RISK. PATIENT WILL BE SEEN WITHIN 3-5 DAYS OF ADMISSION. 10/13/18CHUL[address]
[2018-10-11] MEDS: PANTOPRAZOLE 40 MG INJ VIAL IVP SCH (08:14)
[2018-10-11] MEDS: THIAMINE 100 MG TAB PO SCH (08:14)
[2018-10-11] MEDS: LACTULOSE 20 GM/30 ML UDC PO SCH ×2 (08:14→20:50)
[2018-10-11] MEDS: FOLIC ACID 1 MG TAB PO SCH (08:14)
--- NOTE | 2018-10-11 08:30 | NUR ---
AWAKE AND ALERT VERBALLY RESPONSIVE TO RRTS VERBAL COMMANDS NO SOB NOTED EQUAL CHEST RISE SATURATION 100% ON SUPPLEMENTAL OXYGENT AT 2 LPM VIA NC TITRATED FIO2 TO ROOM AIR RRTS TO MONITOR Addendum: 10/11/18 at 0839 by Altaf Hahn RT ENEDINA/BILL BARAHONA'S AWARE
[2018-10-11 09:02] LABS: LYMPHOCYTES % (MANUAL) 16 % (20-46); MONOCYTES % (MANUAL) 3 % (5-12)
--- NOTE | 2018-10-11 09:11 | NUR ---
PAGED DR. WEBB, WILL F/U.
--- NOTE | 2018-10-11 09:48 | NUR ---
DR. LOONEY IN TO SEE PT, WILL F/U ORDERS.
--- NOTE | 2018-10-11 10:23 | NUR ---
DR. RITCHIE CALLED IN, UPDATED PT'S SITUATION AND LAB REPORT. PER DR. RITCHIE, ORDER PT CLEAR LIQUID DIET, WILL CARRY OUT.
--- NOTE | 2018-10-11 10:44 | NUR ---
CONTACTED PATIENT'S PCP OFFICE DR. DANISH RUIZ AT [phone] FOR POST DISCHARGE APPOINTMENT, ABLE TO SPEAK TO PAGE. SHE PROVIDED ME WITH OCT 16, 2018 AT 0900. COPY OF APPOINTMENT PROVIDED TO THE PATIENT AND NITISH LOMAS. BOTH ABLE TO VERBALIZE UNDERSTANDING.
--- NOTE | 2018-10-11 12:11 | NUR ---
OFFERED PT LUNCH TRAY. FAMILY AT BEDSIDE.
[2018-10-11 14:18] LABS: BASOPHILS % (AUTO) 0.3 % (0.0-2.0); EOSINOPHILS # (AUTO) 0.1 K/uL (0-0.4); EOSINOPHILS % (AUTO) 1.3 % (0.0-4.0); HEMATOCRIT 21.9 % (36-52); HEMOGLOBIN 7.5 g/dL (12.0-18.0); LYMPHOCYTES # (AUTO) 0.6 K/uL (2.0-11.5); LYMPHOCYTES % (AUTO) 11.1 % (20.5-51.1); MEAN CORPUSCULAR HEMOGLOBIN 36 pg (27-31); MEAN CORPUSCULAR HGB CONC 34 g/dL (33-37); MEAN CORPUSCULAR VOLUME 104.6 fL (80-94); MONOCYTES # (AUTO) 0.6 K/uL (0.8-1.0); MONOCYTES % (AUTO) 10.3 % (1.7-9.3); NEUTROPHILS # (AUTO) 4.3 K/uL (1.8-7.7); PLATELET COUNT (AUTO) 49 K/uL (140-450); RED CELL DISTRIBUTION WIDTH 14.6 % (11.6-13.7); WHITE BLOOD COUNT (AUTO) 5.6 K/uL (4.8-10.8)
--- NOTE | 2018-10-11 14:45 | NUR ---
STARTED THE FIRST UNIT OF RED BLOOD CELLS. TEMP CHECK. TOLD ME PT TO NOTIFY NURSE IF PT FEELS ANY DISCOMFORT SUCH : ITCHINESS, SOB, CHEST PAIN, FEVER. PT VERBALIZED UNDERSTANDING. FAMILY AT BEDSIDE.
--- NOTE | 2018-10-11 15:36 | NUR ---
Voice Over Artist Note: Assessment and Consult: I met with patient and patient's niece Juana Sparrow at bedside. Patient speaks Thai. Juana speaks both Albanian and Thai. Patient alert and oriented x4. I introduced myself to them and explained my role as a certified medical technician. Patient lives at home with his brother Henrry Sparrow and plans to return home upon discharge. He has a pcp and follows up with pcp regularly. He does not know how to spell pcp's last name, he thinks it is ([place], [place]). He does not have any difficulty filling his prescriptions at pharmacy. He is independent with ADLs and does not use any DME at home. He drives himself to pcp's office. He is planning to stop drinking alcohol on his own and does not want a list of alcohol/substance abuse treatment programs. He does not have an existing Advance Directive. I provided him and Juana with education on Advance Directive and providing patient with a blank Advance Directive form. I provided patient with my contact information. They do not have any questions nor concerns at this time. Voice Over Artist and/or Polisher Brass will follow up as needed.
[2018-10-11] MEDS: OCTREOTIDE ACETATE 1.25 MG in NACL 0.9% 250 ML IV SCH (16:34)
--- NOTE | 2018-10-11 17:01 | NUR ---
ASSISTED PT TO USE BEDSIDE COMMODE. PT HAD MODERATE AMOUNT OF SOFT BROWNISH BM. NO FRESH OR OLD BLOOD NOTED. ASSISTED PT BACK TO BED. FAMILY AT BEDSIDE.
--- NOTE | 2018-10-11 17:13 | NUR ---
STARTED THE SECOND UNIT OF RED BLOOD CELLS. TEMP CHECKED WITH IN NORMAL RANGE. TOLD ME PT TO NOTIFY NURSE IF PT FEELS ANY DISCOMFORT SUCH : ITCHINESS, SOB, CHEST PAIN, FEVER. PT VERBALIZED UNDERSTANDING. FAMILY AT BEDSIDE.
--- NOTE | 2018-10-11 19:00 | NUR ---
RECEIVED BEDSIDE REPORT FROM DAY SHIFT RN BILL, PT AAOX4. ABLE TO MAKE NEEDS KNOWN. PERRLA BILATERALLY SIZE 3. DENIES PAIN AT THIS TIME. ON ROOM AIR WITH SAT AT 96%. LUNG SOUNDS CLEAR BILATERALLY. RESPIRATIONS EVEN AND UNLABORED. CHEST RISE SYMMETRICAL. SR ON MONITOR. PULSES PALPABLE IN UPPER AND LOWER EXTREMITIES. BP 103/72 MAP 82. BOWEL SOUNDS PRESENT IN ALL 4 QUADS, ABDOMEN DISTENDED, NON-TENDER. DENIES NAUSEA AND VOMITING AT THIS TIME. PT HAS RIGHT HAND 22 GAUGE, LEFT AC 18 GAUGE, AND RIGHT AC 20 GAUGE THAT ARE INTACT, PATENT, AND RUNNING NS 70ML/HR. OCREOTIDE @ 10 ML/HR. 2ND UNIT BLOOD INFUSING IN LEFT AC 18 G, CALLED LAB TO FOLLOW UP WITH [facility] TOLD THEY WILL CALL ME ONCE THEY ARE READY. SKIN INTACT. SCD ON, SIDE RAILS UP. CALL LIGHT WITHIN REACH. EXPLAINED PLAN OF CARE WILL CONTINUE TO MONITOR. WILL CONTINUE TO MONITOR.
--- NOTE | 2018-10-11 19:00 | NUR ---
PT REFUSED MIDODRINE.
--- NOTE | 2018-10-11 19:08 | NUR ---
ENDORSED PT TO PM NURSE.
--- NOTE | 2018-10-11 20:00 | NUR ---
PHONE CALL FROM DR RITCHIE; SHAHRZAD VALLEJO; UPDATED ON PTS PRESENT CONDITION.MADE AWARE 2 UNITS PRBC ALREADY GIVEN; STILL WAITING FOR PLATELET PER LAB.NEW ORDER TO ADVANCE DIET TO FULL LIQUID DIET.CARRIED OUT
[2018-10-11 20:03] LABS: BASOPHILS % (AUTO) 0.2 % (0.0-2.0); EOSINOPHILS # (AUTO) 0.1 K/uL (0-0.4); EOSINOPHILS % (AUTO) 2.1 % (0.0-4.0); HEMATOCRIT 26.3 % (36-52); HEMOGLOBIN 8.9 g/dL (12.0-18.0); LYMPHOCYTES # (AUTO) 0.5 K/uL (2.0-11.5); LYMPHOCYTES % (AUTO) 11.4 % (20.5-51.1); MEAN CORPUSCULAR HEMOGLOBIN 34 pg (27-31); MEAN CORPUSCULAR HGB CONC 34 g/dL (33-37); MEAN CORPUSCULAR VOLUME 100.1 fL (80-94); MONOCYTES # (AUTO) 0.6 K/uL (0.8-1.0); NEUTROPHILS # (AUTO) 3.4 K/uL (1.8-7.7); NEUTROPHILS % (AUTO) 74.3 % (42.2-75.2); PLATELET COUNT (AUTO) 43 K/uL (140-450); RED BLOOD CELL COUNT(AUTO) 2.63 MIL/uL (4.20-6.10); WHITE BLOOD COUNT (AUTO) 4.6 K/uL (4.8-10.8)
--- NOTE | 2018-10-11 20:35 | NUR ---
PT UP TO COMMODE; BM NOTED SMALL AMT OF BROWNISH LIQUID STOOL WITH SMALL AMT OF BLOOD(RED). DR RITCHIE ALSO AT BEDSIDE AND SAW THE STOOL; SAID TO HOLD PLATELET TRANSFUSION AND TO ORDER CBC FOR 2199. CALLED JILLIAN/LAB.
--- NOTE | 2018-10-11 21:45 | NUR ---
ASSISTED PATIENT TO BEDSIDE COMMODE, SMALL LIQUID, BROWN BM, NO BLOOD SEEN, HERMINIA CARE PROVIDED, ASSISTED BACK INTO BED, SIDE RAILS UP, CALL LIGHT WITHIN REACH.
[2018-10-11 22:03] LABS: BASOPHILS % (AUTO) 0.3 % (0.0-2.0); EOSINOPHILS # (AUTO) 0.1 K/uL (0-0.4); EOSINOPHILS % (AUTO) 2.8 % (0.0-4.0); HEMATOCRIT 27.2 % (36-52); HEMOGLOBIN 9.2 g/dL (12.0-18.0); LYMPHOCYTES # (AUTO) 0.6 K/uL (2.0-11.5); LYMPHOCYTES % (AUTO) 12.8 % (20.5-51.1); MEAN CORPUSCULAR HEMOGLOBIN 34 pg (27-31); MEAN CORPUSCULAR HGB CONC 34 g/dL (33-37); MONOCYTES # (AUTO) 0.6 K/uL (0.8-1.0); NEUTROPHILS # (AUTO) 3.5 K/uL (1.8-7.7); NEUTROPHILS % (AUTO) 72.1 % (42.2-75.2); PLATELET COUNT (AUTO) 42 K/uL (140-450); RED BLOOD CELL COUNT(AUTO) 2.72 MIL/uL (4.20-6.10); RED CELL DISTRIBUTION WIDTH 17.3 % (11.6-13.7); WHITE BLOOD COUNT (AUTO) 4.8 K/uL (4.8-10.8)
--- NOTE | 2018-10-11 23:21 | NUR ---
PATIENT SLEEPING, RR EVEN AND UNLABORED, V/S STABLE, FLACC-0, CALL LIGHT WITHIN REACH, WILL CONTINUE TO MONITOR
--- NOTE | 2018-10-11 23:50 | NUR ---
PATIENT ASSISTED TO BEDSIDE COMMODE, HAD ONE LOOSE BM, BROWN, NO BLOOD SEEN AND URINATED X 1. ASSISTED BACK INTO BED, BED ALARM ON, CALL LIGHT WITHIN REACH.
[2018-10-12] VITALS (9 sets, daily range): BP systolic 92–136; BP diastolic 51–74
--- NOTE | 2018-10-12 01:45 | NUR ---
PATIENT WOKE UP ASKED TO BE REPOSITIONED, HELP PATIENT TURN, OFFERED PATIENT WATER, SIDE RAILS UP, CALL LIGHT WITHIN REACH, WILL CONTINUE TO MONITOR.
--- NOTE | 2018-10-12 04:07 | NUR ---
bm noted;moderate amt of liquid brownish stool; also noted one small green band with the stool.will notify dr oconnell in am
--- NOTE | 2018-10-12 06:30 | NUR ---
DUE MEDICATION GIVEN, BG 173 PATIENT WILL HAVE 2 UNITS HUMALOG WHEN BREAKFAST TRAY ARRIVES.
[2018-10-12] MEDS: MIDODRINE 5 MG TAB PO SCH ×2 (06:41→13:00)
[2018-10-12] MEDS: BLOOD GLUCOSE MONITORING 1 DEV DEV FS SCH ×2 (06:47→11:23)
[2018-10-12 06:53] LABS: ALBUMIN 2.2 g/dL (3.4-5.0); ANION GAP 10.4 (8-16); CARBON DIOXIDE 25.3 mmol/L (21-32); CREATININE 0.7 mg/dL (0.7-1.3); POTASSIUM 3.7 mmol/L (3.5-5.1); TOTAL BILIRUBIN 1.7 mg/dL (0.0-1.0)
[2018-10-12 06:56] LABS: BASOPHILS % (AUTO) 0.4 % (0.0-2.0); EOSINOPHILS # (AUTO) 0.1 K/uL (0-0.4); EOSINOPHILS % (AUTO) 3.4 % (0.0-4.0); HEMOGLOBIN 8.6 g/dL (12.0-18.0); LYMPHOCYTES # (AUTO) 0.4 K/uL (2.0-11.5); LYMPHOCYTES % (AUTO) 12.9 % (20.5-51.1); MEAN CORPUSCULAR HEMOGLOBIN 34 pg (27-31); MEAN CORPUSCULAR HGB CONC 34 g/dL (33-37); MEAN CORPUSCULAR VOLUME 99.1 fL (80-94); MONOCYTES # (AUTO) 0.3 K/uL (0.8-1.0); MONOCYTES % (AUTO) 12.1 % (1.7-9.3); NEUTROPHILS % (AUTO) 71.2 % (42.2-75.2); PLATELET COUNT (AUTO) 37 K/uL (140-450); RED BLOOD CELL COUNT(AUTO) 2.52 MIL/uL (4.20-6.10); WHITE BLOOD COUNT (AUTO) 2.7 K/uL (4.8-10.8)
--- NOTE | 2018-10-12 07:15 | NUR ---
RECEIVED REPORT FROM GAME ENGINEER NURSE AT BEDSIDE, PT IS AAOX4, ABLE TO FOLLOW COMMANDS AND MAKE NEEDS KNOWN, VSS, DENIES ANY PAIN, NO S/S OF DISTRESS, CLEAR LUNG SOUNDS JAVAD, ON RA, O2 SAT 98%, DENIES CHEST PAIN, SR ON ENGINE DYNAMOMETER TESTER, ROUND SOFT ABDOMEN WITH ACTIVE BOWEL SOUNDS, CONTINENT WITH B&B'S, ABLE TO MOVE ALL EXTREMITIES, SKIN IS WARM AND DRY TO TOUCH, NO WOUND PRESENT, IV SITE TO RIGHT AC 20GA, PATENT, RUNNING SANDOSTATIN AT 10 ML/HR, IV TO RIGHT HAND 22GA, RUNNING NS AT 70 ML/HR, IV TO LEFT AC 18GA, PATENT AND SL. HOB ELEVATED 30 DEGREES, SAFETY MEASURES IN PLACE, WILL CONTINUE TO MONITOR.
--- NOTE | 2018-10-12 07:35 | NUR ---
DR. RITCHIE CAME IN TO SEE PT AT BEDSIDE, UPDATED PT'S CONDITION, DR. RITCHIE STATED PT IS STABLE, OK TO D/C TO HOME.
[2018-10-12] MEDS: FOLIC ACID 1 MG TAB PO SCH (08:42)
[2018-10-12] MEDS: THIAMINE 100 MG TAB PO SCH (08:42)
[2018-10-12] MEDS: PANTOPRAZOLE 40 MG INJ VIAL IVP SCH (08:42)
[2018-10-12] MEDS: LACTULOSE 20 GM/30 ML UDC PO SCH (08:42)
--- NOTE | 2018-10-12 09:00 | NUR ---
SCHEDULED MEDICATION GIVEN, PT TOLERATED WELL.
--- NOTE | 2018-10-12 10:00 | NUR ---
PT IS RESTING IN BED, NO S/S OF DISTRESS, VSS, DENIES PAIN
[2018-10-12] MEDS ORDERED: SODIUM FERRIC GLUCONATE 125 MG in NACL 0.9% 100 ML IV SCH (11:00)
[2018-10-12] MEDS: INSULIN LISPRO SLIDING SCALE 100 UNITS/ML VIAL SUBQ PRN (11:28)
--- NOTE | 2018-10-12 12:00 | NUR ---
NO CHANGE OF CONDITION, VSS, DENIES PAIN, ABLE TO SELF REPOSITION IN BED.
--- NOTE | 2018-10-12 15:05 | NUR ---
DR. LOONEY CAME IN TO SEE PT AT BEDSIDE, WILL D/C PATIENT TO HOME AT THIS TIME.
[2018-10-12] MEDS ORDERED: LACT10SO1 PO (15:11)
--- NOTE | 2018-10-12 16:00 | NUR ---
DIETITIAN CAME IN TO TEACH PT ON DISCHARGE DIET AT HOME, HAND OUT GIVEN, AND PT AND PT'S FAMILY MEMBERS VERBALIZED UNDERSTANDING IT.
--- NOTE | 2018-10-12 16:20 | NUR ---
PT IS AAOX4, VSS, DENIES ANY PAIN, DISCHARGE INSTRUCTION GIVEN, ALL BELONGS COUNTED AND GOES WITH PT, DISCHARGE PACKAGE SIGNED, PT LEFT IN A PRIVATE CARE ACCOMPANIED WITH FAMILY MEMBERS WITHOUT ACCIDENTS.
== END 2018-10-12 16:20 | disposition home or self-care (01) | DRG 242 ==
LOC: MED 15:16 → MIC 16:38
PROVIDERS: ADMIT Internal Medicine Pulmonary Disease; ATTEND Internal Medicine Pulmonary Disease
PROC: 30233N1 Transfusion of Nonautologous Red Blood Cells into Peripheral Vein, Percutaneous Approach (ICD-10-PCS; principal; 2018-10-11)
DX: I85.11 Secondary esophageal varices with bleeding (principal); R57.8 Other shock; I95.9 Hypotension, unspecified; D68.9 Coagulation defect, unspecified; K76.6 Portal hypertension; D62 Acute posthemorrhagic anemia; K70.30 Alcoholic cirrhosis of liver without ascites; I10 Essential (primary) hypertension; E11.9 Type 2 diabetes mellitus without complications; E66.9 Obesity, unspecified; Z68.33 Body mass index [BMI] 33.0-33.9, adult
CPT/HCPCS: 36415; 71045; 80053; 81001; 82140; 82948; 83880; 85025; 85610; 85730; 86886; 86900; 86901; 86920; 87040; 87081; 93005; 94640; 96365; 96375; 99291; C9113; J0696; J1815; J2270; J2354; J2405; J2916; J7030; J7060; J7613; J7644; P9016; P9046; Q0092